=== PATIENT | female | born 1980 | race Two or more races ===

== ENCOUNTER 2024-06-20 20:42 | Emergency (ER) | payer OTHER, SELFPAY ==
[~2024-06-20] VITALS: Ht 157.5 cm; Wt 73.5 kg
[2024-06-20 21:00] VITALS: BP 148/96; PULSE 92; RESP 14; O2SAT 99
--- NOTE | 2024-06-20 21:36 | ED.PDOC ---
VOCATIONAL COUNSELOR HPI Comments 43 year old female presents to ER with complaints of pelvic pain x1 day. Patient with past medical history significant for ovarian cyst reports that she woke up at 3:00 a.m. prior to arrival to ER with left-sided pelvic pain and associated nausea/vomiting. She rates her current left-sided pelvic pain a 10/10 without radiation. Reports that she took Tylenol and ibuprofen for her symptoms with slight relief. Patient presents to ER in mild distress, present in wheelchair. Denies fever, body aches, chills, abdominal pain, back/flank pain, vaginal bleeding/ changes in urination, changes in BM or any further symptoms/complaints Chief Complaint: Pelvic Pain Time Seen by MD: 20:47 Primary Care Provider: GUME Reviewed Notes: Nurses Notes, Medications, Allergies Allergies: Coded Allergies: NO KNOWN ALLERGIES (Unverified , 06/20/24) Home Meds Active Scripts Ondansetron Odt 4MG Tab (ZOFRAN PO) 4 Mg Tb, 4 MG PO Q8HPRN, #14 TAB 0 Refills ODT TAB-DISSOLVE IN MOUTH, THEN SWALLOW Prov:ALIS WATKINS 06/20/24 Acetaminophen W/ Codeine (Tylenol W/Cod #3) 1 Tab Tb, 1 TAB PO Q6HPRN, #10 TAB 0 Refills Prov:ALIS WATKINS 06/20/24 Information Source: Patient Past Medical History Past Medical History (Other): OVARIAN CYSTS Surgical History: Denies all surgeries ACCOUNT DEVELOPMENT REPRESENTATIVE History: Ovarian Cysts Family History Family History: Unknown Social History Smoker: Non-Smoker Alcohol: Occasionally Drugs: Denies Drug Use Lives In: Home Constitutional: denies: chills, diaphoresis, fatigue, fever, malaise, sweats, weakness, others EENTM: denies: blurred vision, double vision, ear bleeding, ear discharge, ear drainage, ear pain, ear ringing, eye pain, eye redness, hearing loss, mouth pa in, mouth swelling, nasal discharge, nose bleeding, nose congestion, nose pain, photophobia, tearing, throat pain, throat swelling, voice changes, others Respiratory: denies: cough, hemoptysis, orthopnea, SOB at rest, shortness of breath, SOB with excertion, stridor, wheezing, others Cardiovascular: denies: chest pain, dizzy spells, diaphoresis, Dyspnea on exertion, edema, irregular heart beat, left arm pain, lightheadedness, palpitations, PND, syncope, others Gastrointestinal: reports: others ( STATED IN HPI) Genitourinary: reports: others ( STATED IN HPI) Neurological: denies: dizziness, fainting, headache, left sided numbness, left sided weakness, numbness, paresthesia, pre-existing deficit, right sided numbness, right sided weakness, seizure, speech problems, tingling, tremors, weakness, others Musculoskeletal: denies: back pain, gout, joint pain, joint swelling, muscle pain, muscle stiffness, neck pain, others Integumetry: denies: bruises, change in color, change in hair/nails, dryness, laceration, lesions, lumps, rash, wounds, others Allergic/Immunocompromised: denies: Difficulty Healing, Frequent Infections, Hives, Itching, others Hematologic/Lymphatic: denies: anemia, blood clots, easy bleeding, easy bruising, swollen glands, others Endocrine: denies: excessive hunger, excessive sweating, excessive thirst, excessive urination, flushing, intolerance to cold, intolerance to heat, unexplained weight gain, unexplained weight loss, others Psychiatric: denies: anxiety, bipolar disorder, depression, hopeless, panic disorder, schizophrenia, sleepless, suicidal, others Physical Exam General Appearance: No Apparent Distress HEENT: PERRL/EOMI Neck: Full Range of Motion, Non-Tender, Normal Respiratory: Chest Non-Tender, Lungs Clear, No Accessory Muscle Use, No R espiratory Distress, Normal Breath Sounds Cardiovascular: No Murmur, No Gallop, Regular Rate/Rhythm Breast Exam: Deferred Gastrointestinal: No Organomegaly, No Pulsatile Mass, Normal Bowel Sounds, Soft, Other (SLIGHT TTP TO LEFT LOWER PELVIC REGION NOTED. NO TTP TO ABDOMEN NOTED) Genitalia: Deferred Pelvic: Deferred Rectal: Deferred Extremities: Normal capillary refill, Normal range of motion Neurologic: Alert, mold presser II-XII nml as Tested, No Motor Deficits, Normal Affect, Normal Mood, No Sensory Deficits Cerebellar Function: Normal Reflexes: Normal Skin: Dry, Normal Color, Warm Lymphatic: No Adenopathy Was a procedure done? Was a procedure done?: No Sedation Sedation?: No Differential Diagnosis (ACCOUNT DEVELOPMENT REPRESENTATIVE) Vaginal Bleeding: Ectopic , Trauma, Vaginitis, Other (MASS) Vaginal Discharge: UTI X-Ray, Labs, Meds, VS Vital Signs Date Time Temp Pulse Resp B/P (MAP) Pulse Ox O2 Delivery O2 Flow Rate FiO2 06/20/24 21:00 98.2 92 14 148/96 (113) 99 Lab Test 06/20/24 21:59 06/20/24 21:00 Range/Units White Blood Count 11.2 H 4.4-10.8 10^3/uL Red Blood Count 5.21 H 4.0-5.20 10^6/uL Hemoglobin 15.7 12.2-16.2 g/dL Hematocrit 46.3 H 36.0-46.0 % Mean Corpuscular Volume 88.7 80.0-100.0 fL Mean Corpuscular Hemoglobin 30.2 28.0-32.0 pg Mean Corpuscular Hemoglobin Concent 34.0 32.0-36.0 g/dL Red Cell Distribution Width 14.0 11.8-14.3 % Platelet Count 267 140-450 10^3/uL Mean Platelet Volume 9.9 6.9-10.8 fL Neutrophils (%) (Auto) 71.0 37.0-80.0 % Lymphocytes (%) (Auto) 22.6 10.0-50.0 % Monocytes (%) (Auto) 4.7 0.0-12.0 % Eosinophils (%) (Auto) 1.1 0.0-7.0 % Basophils (%) (Auto) 0.6 0.0-2.0 % Neutrophils # (Auto) 8.0 1.6-8.6 10 ^3/uL Lymphocytes # (Auto) 2.5 0.4-5.4 10 ^3/uL Monocytes # (Auto) 0.5 0-1.3 10 ^3/uL Eosinophils # (Auto) 0.1 0-0.8 10 ^3/uL Basophils # (Auto) 0.1 0-0.2 10 ^3/uL Nucleated Red Blood Cells 0.1 % Sodium Level 135 L 136-145 mmol/L Potassium Level 3.6 3.5-5.1 mmol/L Chloride Level 99 98-107 mmol/L Carbon Dioxide Level 25 20-31 mmol/L Anion Gap 11 5-15 Blood Urea Nitrogen 16 9-23 mg/dL Creatinine 0.94 0.550-1.02 mg/dL Glomerular Filtration Rate Calc 78 >90 mL/min BUN/Creatinine Ratio 17.0 10.0-20.0 Serum Glucose 365 H 74-106 mg/dL Calcium Level 10.2 8.7-10.4 mg/dL Urine Color Yellow Yellow Urine Clarity Clear Clear Urine pH 5.5 5.0-9.0 Urine Specific [place] > 1.050 H 1.001-1.035 Urine Protein Trace H Negative Urine Ketones 2+ H Negative Urine Blood Negative Negative /uL Urine Nitrite Negative Negative Urine Bilirubin Negative Negative Urine Urobilinogen Normal Negative mg/dL Urine Leukocyte Esterase Negative Negative /uL Urine RBC 2 0 - 4 /hpf Urine Microscopic WBC 1 0-5 /HPF Urine Squamous Epithelial Cells Few <5 /hpf Urine Bacteria Few H None Seen /hpf Urine Mucus Few None Seen Urine Glucose 4+ H Normal mg/dL Urine Test Negative Negative Current Medications Medications (Trade) Dose Ordered Sig/Miguel A Route Start Time Stop Time Status Last Admin Ondansetron HCl (Zofran Po) 4 mg ONCE ONCE PO 06/20/24 21:30 06/20/24 21:31 DC 06/20/24 21:44 Acetaminophen/ Hydrocodone Bitart (Henry 5/325MG Tab) 1 tab ONCE ONCE PO 06/20/24 22:00 06/20/24 22:01 DC 06/20/24 21:59 PATIENT: SAMANTHA JUAREZCCT: [id number]: [id number] : 1980 LOC: ER ROOM / BED: / AGE / SEX: 43 / F ADM STATUS: REG ER SERVICE 09 ORDERING PHYSICIAN: ALIS WATKINS PROCEDURE(s): PELUS - PELVIC REASON: PELVIC PAIN, HX OVARIAN CYSTS ORDER NUMBER(s): [id number], ACCESSION NUMBER(s): [id number] EXAM: US PELVIC CLINICAL HISTORY: PELVIC PAIN, HX OVARIAN CYSTS TECHNIQUE: Transabdominal ultrasound of the pelvis with color Doppler flow as clinically indicated. COMPARISON: None Findings: Same-day quantitative beta-hCG is not available. Uterus measures 7.6 x 4.7 x 5.4 cm in size with relatively homogeneous echotexture and normal contours. Endometrial thickness measures 0.7 cm with smooth contour. Cervix appears grossly unremarkable. Right ovary not visualized. Left ovary measures 9.8 x 6.6 x 9.9 cm. 8.6 x 6.2 x 9.3 cm anechoic lesion. Normal left ovarian color Doppler flow. No free fluid in the cul-de-sac. Impression: 1. Uterus grossly unremarkable with endometrial thickness of 0.7 cm. 2. 8.6 x 6.2 x 9.3 cm left ovarian cyst. Recommend follow-up ultrasound in 8-12 weeks, per ORADs criteria. ATED BY: JYOTI SPRINGER DO DICTATED DATE/TIME: 06/20/242157 SIGNED BY: JYOTI SPRINGER DO SIGNED DATE/TIME: 06/20/242157 CC: CBC REVIEWED WBC 11.2 BMP REVIEWED - SODIUM 135, SERUM GLUCOSE 365 URINALYSIS REVIEWED - URINE KETONES 2+, URINE GLUCOSE 4+, URINE LEUKOCYTE ESTERASE NEGATIVE, URINE NITRITES NEGATIVE, URINE BLOOD NEGATIVE PELVIC ULTRASOUND REVIEWED NORCO 5/325 MG P.O. ORDERED ZOFRAN 4 MG P.O. ORDERED PATIENT PROVIDED P.O. FLUIDS IN ER, DENIED HISTORY OF DIABETES AND STATES SHE WILL F/U WITH HER HER PCP WITH REGARDS TO FURTHER EVALUATION ON ELEVATED GLUCOSE LEVELS DIET/LIFE STYLE EDUCATION DISCUSSED PATIENT HAD IMPROVEMENT IN SYMPTOMS AND IN NO DISTRESS PRIOR TO DISCHARGE PATIENT PROVIDED COPY OF ULTRASOUND REPORT UPON DISCHARGE ADVISED TO FOLLOW UP WITH PCP AND GYNECOLOGY IN 1-2 DAYS PATIENT VERBALIZED UNDERSTANDING AND AGREEABLE WITH CURRENT PLAN OF CARE ADVISED TO RETURN TO ER IMMEDIATELY IF SYMPTOMS WORSEN Images Reviewed?: Images reviewed and evaluated by me Time of 1ST Reevaluation: 21:24 Reevaluation 1ST: N/A Time of 2ND Reevaluation: 22:48 Reevaluation 2ND: Improved Patient Education/Counseling: Diagnosis, Treatment, Prognosis, Need For Follow Up Family Education/Counseling: Diagnosis, Treatment, Prognosis, Need For Follow Up Departure 1 Departure Time of Disposition: 22:50 Impression: Primary Impression: Ovarian cyst Qualified Codes: N83.202 - Unspecified ovarian cyst, left side Additional Impression: Hyperglycemia Disposition: HOME / SELF CARE / HOMELESS Condition: Stable e-Prescriptions Ondansetron Odt 4MG Tab (ZOFRAN PO) 4 Mg Tb 4 MG PO Q8HPRN, #14 TAB 0 Refills ODT TAB-DISSOLVE IN MOUTH, THEN SWALLOW Prov: ALIS WATKINS 06/20/24 Acetaminophen W/ Codeine (Tylenol W/Cod #3) 1 Tab Tb 1 TAB PO Q6HPRN, #10 TAB 0 Refills Prov: ALIS WATKINS 06/20/24 Discharged With: Other ([facility]) Critical Care Note Critical Care Time?: No Stability Stability form required: No Heart Score Heart Score: Heart Score Response (Comments) Value History N/A 0 EKG N/A 0 Age N/A 0 Risk Factors N/A 0 Troponin N/A 0 Total 0 ALIS WATKINS Jun 20, 2024 21:36
[2024-06-20] MEDS: ONDANSETRON ODT 4 MG TAB PO ONE (21:44)
[2024-06-20] MEDS: MORPHINE SULFATE INJ 2 MG/ml SYRG IM ONE (21:49)
[2024-06-20 21:52] LABS: Urine Bacteria FEW /hpf (None Seen); Urine Blood Negative /uL (Negative); Urine Clarity Clear (Clear); Urine Color Yellow (Yellow); Urine Mucus FEW (None Seen); Urine Protein, UAD TRACE (Negative); Urine Squamous Epithelial Cell FEW /hpf (<5); Urine Urobilinogen Normal (Negative); Urine WBC 1 /HPF (0-5); Urine pH 5.5 (5.0-9.0)
[2024-06-20] MEDS: HYDROcodone-ACET 5/325MG TAB PO ONE (21:59)
--- NOTE | 2024-06-20 22:01 | DVH ---
EXAM: US PELVIC CLINICAL HISTORY: PELVIC PAIN, HX OVARIAN CYSTS TECHNIQUE: Transabdominal ultrasound of the pelvis with color Doppler flow as clinically indicated. COMPARISON: None Findings: Same-day quantitative beta-hCG is not available. Uterus measures 7.6 x 4.7 x 5.4 cm in size with relatively homogeneous echotexture and normal contour s. Endometrial thickness measures 0.7 cm with smooth contour. Cervix appears grossly unremarkable. Right ovary not visualized. Left ovary measures 9.8 x 6.6 x 9.9 cm. 8.6 x 6.2 x 9.3 cm anechoic lesion. Normal left ovarian color Doppler flow. No free fluid in the cul-de-sac. Impression: 1. Uterus grossly unremarkable with endometrial thickness of 0.7 cm. 2. 8.6 x 6.2 x 9.3 cm left ovarian cyst. Recommend follow-up ultrasound in 8-12 weeks, per ORADs cri terjoaquin.
[2024-06-20] MEDS ORDERED: ACE3T PO (22:30)
[2024-06-20] MEDS ORDERED: ZOFR4T PO (22:30)
[2024-06-20 22:39] LABS: Urine Specific Gravity > 1.050 (1.001-1.035)
[2024-06-20 22:40] LABS: Chloride 99 mmol/L (98-107); Potassium 3.6 mmol/L (3.5-5.1)
[2024-06-20 22:41] LABS: Anion Gap 11 (5-15); Calcium 10.2 mg/dL (8.7-10.4); Carbon Dioxide 25 mmol/L (20-31)
[2024-06-20 22:43] LABS: Sodium 135 mmol/L (136-145)
[2024-06-20 22:46] LABS: Basophils # (auto) 0.1 10 ^3/uL (0-0.2); Basophils % (auto) 0.6 % (0.0-2.0); Blood Urea Nitrogen 16 mg/dL (9-23); Eosinophils # (auto) 0.1 10 ^3/uL (0-0.8); Eosinophils % (auto) 1.1 % (0.0-7.0); Hematocrit 46.3 % (36.0-46.0); Hemoglobin 15.7 g/dL (12.2-16.2); Lymphocytes # (auto) 2.5 10 ^3/uL (0.4-5.4); Lymphocytes % (auto) 22.6 % (10.0-50.0); Mean Corpuscular Hemoglobin 30.2 pg (28.0-32.0); Mean Corpuscular Volume 88.7 fL (80.0-100.0); Monocytes # (auto) 0.5 10 ^3/uL (0-1.3); Monocytes % (auto) 4.7 % (0.0-12.0); Nucleated Red Blood Cells % 0.1 %; Platelet Count (auto) 267 10^3/uL (140-450); Red Blood Cells 5.21 10^6/uL (4.0-5.20); White Blood Cell 11.2 10^3/uL (4.4-10.8)
[2024-06-20 22:47] LABS: Glucose 365 mg/dL (74-106)
== END 2024-06-20 22:56 | disposition home or self-care (01) ==
LOC: ER 20:42
DX: R73.9 Hyperglycemia, unspecified (principal); N83.292 Other ovarian cyst, left side
CPT/HCPCS: 36415; 76856; 80048; 81001; 81025; 85025; 99284; J2270; Q0162